=== PATIENT | male | born 1960 | race Caucasian/White ===

== ENCOUNTER 2020-01-16 14:01 | Outpatient (CLI) | payer MEDICARE, SELFPAY ==
[2020-01-16 17:04] LABS: Magnesium 1.9 mg/dL (1.6-2.3)
[2020-01-16 17:21] LABS: Vitamin D 25 Hydroxy 20.2 ng/mL
[2020-01-21 15:06] LABS: Testosterone Total 551 ng/dL (250-1100)
== END 2020-01-16 14:02 | disposition home or self-care (01) ==
PROVIDERS: Visit Provider Physical Medicine & Rehabilitation
DX: R53.83 Other fatigue (principal)
CPT/HCPCS: 36415; 82306; 83735; 84403; 84443

== ENCOUNTER 2020-07-28 09:30 | Outpatient (RCR) | payer MEDICARE, SELFPAY ==
[2020-06-23 15:49] VITALS: BP 124/80; PULSE 67; RESP 16; TEMP 36.1; O2SAT 96
[2020-06-23 15:54] VITALS: PULSE 67
--- NOTE | 2020-07-06 10:52 | PCCPR ---
Order for nonmonitored exercise ordered Order received from Dr Winchester.
--- NOTE | 2020-08-17 09:10 | PCCPR ---
Addendum entered by Dayanara Jett RN 08/24/20 09:44: Rodrick lLM on our vm that e has an apt with his MD on 09/02 and hopes to return shortly after that. Original Note: Absent week of August 17-. Rodrick called in stating he is having issues with his anger. Nothing physical but he is having verbal outbursts. He has a call out to his neurologist to try to get an appt. He states before he returns to pulmonary rehab he wants to get it under control. He will call us later this week or next Monday after he hears back from his neurologist.
--- NOTE | 2020-09-08 10:59 | PCCPR ---
Called Jama today to follow up regarding his return to pulmonary rehab. No answer, left message.
--- NOTE | 2020-09-18 14:10 | PCCPR ---
Rodrick has not returned and has not returned our call. Called again today. No answer, left message asking him to return our call and if we do not hear from him by the end of next week, he will be discharged from program.
--- NOTE | 2020-09-25 09:20 | PCCPR ---
Jama has not returned our call and has not attended since 07/28/20. Discharged from program.
== END 2020-09-25 09:47 | disposition home or self-care (01) ==
LOC: ANHCPREHAB 09:30
PROVIDERS: PCP Internal Medicine
DX: J43.9 Emphysema, unspecified (principal)
CPT/HCPCS: 97150; G0424

== ENCOUNTER 2024-04-19 01:56 | Day surgery (SDC) | payer MEDICARE, SELFPAY ==
--- NOTE | 2024-04-15 13:26 | PC.NURSE ---
Report to the Outpatient Waiting Room, entrance under the green pavilion located off [facility], at time _12:15 pm on date _04/19/24 . Planned Procedure Time: _2:15 pm .? Time changes happen often and if your time is changed the preop area will call you the afternoon before. - You and your visitor will be asked to self-screen and do not enter if you have any COVID symptoms. Please call surgeon if you need to reschedule. - A mask is optional within the hospital at this time. NOTHING TO EAT OR DRINK 8 HOURS PRIOR TO SURGERY PER DR SAEED (6:15 AM) Take only the following medications with a SIP of water on the morning of surgery: ___TRELEGY INHALER,_AMLODIPINE,,METOPROLOL,VENLAFAXINE DO NOT STOP ANY OF YOUR OTHER PRESCRIPTION MEDICATIONS PRIOR TO SURGERY EXCEPT THE FOLLOWING Medications to discontinue per physician ____ASPIRIN PER DR SAEED Please no make-up, nail bulgarian, hairspray, perfume, deodorant, or body powder the day of surgery.? No jewelry (including any body piercings) or valuables the day of surgery, leave them at home.? Please take a shower or bath the night before, or the morning of, surgery with an antibacterial soap.? Wear comfortable, loose fitting clothing.? Children are encouraged to wear pajamas. - Jewelry must be removed prior to entering the operating room.? Rings and piercings that are not removed may be cut off. - The hospital will not accept responsibility for valuables.? - Please leave all valuables, including medications, at home the day of surgery. If you are going home after surgery, a licensed diesel pile driver operator must drive you home.? - NO public transportation without another adult if you receive anesthesia. - We recommend that an adult stay with you for 24 hours following discharge. - We also recommend that you do not drive, make important decision, drink alcoholic beverages, or take any drugs that were not prescribed by your health care provider for at least 24 hours after your discharge time. For Pediatric surgeries, we recommend two adults accompany the child home. Follow any additional instructions given to you from your surgeon. Telephone instructions given to __PATIENT and asked if any additional questions and then verbalized understanding. Patient advised to call surgeon office or pre surgery nurse liaison [phone] if any additional questions.
[2024-04-15 13:56] VITALS: BMI 22.1
--- NOTE | 2024-04-19 10:00 | PM.HPGS ---
History of Present Illness History of Present Illness Chief complaint: right Dupuytren's contracture Narrative: Patient seen and examined in pre-operative holding area. No interval change in medical history or symptoms. Patient recalls previous discussion of benefits and alternatives to procedure. Continues to desire to proceed with right small finger fasciectomy . Reviewed procedure, post-op expectations and risks including but not limited to bleeding, infection, injury to tendon/nerve/vessel, decreased hand function, stiffness, RSD, no change or worsening of symptoms, recurrence, incomplete release. I discussed the possible use of assistants and their participation in the case. Patient stated understanding and signed the consent form wishing to proceed. Review of Systems Review of Systems: All systems reviewed & are unremarkable except as noted in HPI and below PMFSH Past Medical History Medical History (Updated 04/19/24 @ 10:53 by Sandip Tirado DO) COPD (chronic obstructive pulmonary disease) Atherosclerosis Pneumonia Heart disease Erythrocytosis Bronchitis Blood clotting disorder Osteoarthritis Subclavian steal syndrome Myocardial infarction Tumor of soft tissue of neck removed 09/11 Onychocryptosis Shoulder pain Hypertension CVA (cerebral vascular accident) Polycythemia Pulmonary emphysema Depression Hypercholesterolemia CAD (coronary artery disease) Surgical History Surgical History H/O hand surgery right H/O foot surgery Right H/O right coronary artery stent placement 2000 Family History Family History Father Mesothelioma Family history of Parkinson's disease Diabetes mellitus Sibling Family history of malignant neoplasm of breast in first degree relative Mother Patient's mother is Congestive heart failure Other Hypertension Social History Social History (Updated 01/02/24 @ 09:20 by Sanjuana Coon CMA) Smoking packs per day: 2.5 Smoking cigarettes per day: 50.0 Years smoked: 30 Smoking pack-years: 75.00 Smoking status: Former smoker Tobacco type: cigarettes Smokeless tobacco user: other Smoking end date: 05/01/08 Additional smoking assessment comments: states he still smokes marajuana for anxiety and some pain managment Alcohol intake: current Drinks per week: 7 Alcohol use details: Pt drinks socially. Substance use: current Substance use type: marijuana Last use: 04/15/24 Do You Feel Safe in your Home?: Yes Lack of Transportation: YES Lack of Food: Sometimes True Current Housing: I Have Housing Concerned About Future Housing: No Difficulty Paying Gas/Electric Bills: YES Difficulty Paying for Meds: No Currently Unemployed: No Education: High School Diploma/GED Difficulty w/ Childcare or Family Care: No Living arrangements: with family Gender identity (if verbalized by the patient): Male Spiritual care concerns: No Meds Home Medications and Allergies Home Medications ?Medication ?Instructions ?Recorded ?Confirmed ?Type aspirin 81 mg tablet,delayed 81 mg PO DAILY 04/15/19 04/19/24 History release (Adult Aspirin Regimen) baclofen 10 mg tablet 10 mg PO DAILY 06/12/20 04/19/24 History fluticasone fur. 100 mcg-umeclid 1 inh inhalation DAILY 06/12/20 04/19/24 History 62.5 mcg-vilant 25 mcg inhalat.powder (Trelegy Ellipta) metoprolol tartrate 25 mg tablet 25 mg PO DAILY 07/29/20 04/19/24 History amlodipine 10 mg tablet See Rx Instructions .Route 11/17/23 04/19/24 Rx .COMPLEX #90 tabs albuterol sulfate 90 mcg/actuation 1 - 2 inh inhalation Q4H PRN 12/15/23 04/19/24 Rx aerosol inhaler (Ventolin HFA) shortness of breath or wheezing #8.5 grams atorvastatin 80 mg tablet 80 mg PO DAILY #90 tabs 12/15/23 04/15/24 Rx venlafaxine 75 mg capsule,extended 75 mg PO DAILY #90 caps 01/26/24 04/19/24 Rx release 24 hr (Effexor XR) Allergies Allergy/AdvReac Type Severity Reaction Status Date / Time rabbit dander Allergy Unknown Unknown Verified 04/15/24 13:36 Exam Narrative: unchanged Assessment and Plan Assessment and plan (1) Dupuytren contracture: Code(s): 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
--- NOTE | 2024-04-19 10:00 | W.PM.PROC2 ---
Procedure Note - Detailed Date of Procedure 04/19/24 Pre-op Diagnosis right small finger Dupuytren's contracture Post-op Diagnosis Same Procedure Performed right small finger fasciectomy Surgeon Anoop Schwartz MD Pipeline [employer] didi wilson pa-c Anesthesia MAC Description of Procedure INFORMED CONSENT: The patient was seen and examined and marked in the pre-op area.? The patient signed the consent form. PROCEDURE IN DETAIL:The patient taken back to OR on the stretcher in supine position. Time out performed with anesthesia, surgeon and staff agreeing on patient's name site and surgery to be performed SCDs were placed on the lower extremities and inflated. A tourniquet was placed on {right} upper extremity and antibiotics given IV After anesthesia administered sedation I injected {4}cc 1%lido and 0.5% marcaine plain at the operative site The?{right upper extremity}?was prepped and draped in sterile fashion the??{right upper extremity} was? exsanguinated with Esmarch bandage and tourniquet inflated to 250mmHg I proceeded with making a longitudinal incision over right small finger p2 cord extending to dipjoint on radial side through sking and dermis with a 15 blade scalpel. Littler scissors were used to spread down to the cord proximally. I circumferentailly dissected around this retrovascular cord and excised it with 15 blade scalpel improving extension of dipjoint. The neurovascular bundle was identified and protected during the procedure. Not achieving complete repease and extension of dipjoint I proceeded with making a longitudinal incision over the ulnar small finger cord through skin and dermis with a 15 blade scalpel. Littler scissors were used to spread around the cord which was transected with 15 blade proximally and then I proceeded with anterograde dissection until I achieved full release of the dipjoint. The neurovascular bundle was protected throughout the procedure. I irrigated with normal saline and closed incisions with 4-0 chromic A dressing of xeroform , 4x4, kelvin, and an ulnar gutter splint was applied for patient safety, security, and comfort and secured with an marcelina bandage after the tourniquet was let down noting the hand was warm and well perfused. The patient was then awaken from anesthesia and transferred to the recovery room in stable condition.? Complications - none EBL- 0cc Disposition - home in stable conditions didi wilson pa-c was essential for positioning, retraction, closure and dressing placement [facility] Billing Surgery - Charge Forward: Surgery Billing ([id number] for didi)
--- NOTE | 2024-04-19 10:53 | P.PNAN_ITS ---
Anes - Initial Pre Proc Eval Procedure: Operation Date: 04/19/24 14:15 Proposed Procedures p Right Small Finger Fasciectomy - Anoop Schwartz MD Date/Time: 04/19/24 10:53 Surgeon: Anoop Schwartz MD Pre Op Diagnosis: right Dupuytren's contracture Patient Data Age: 63 Gender: M Height: 1.75 m Weight: 68.1 kg Allergies Allergy/AdvReac Type Severity Reaction Status Date / Time rabbit dander Allergy Unknown Unknown Verified 04/15/24 13:36 Home Medications ?Medication ?Instructions ?Recorded ?Confirmed ?Type aspirin 81 mg tablet,delayed 81 mg PO DAILY 04/15/19 04/19/24 History release (Adult Aspirin Regimen) baclofen 10 mg tablet 10 mg PO DAILY 06/12/20 04/19/24 History fluticasone fur. 100 mcg-umeclid 1 inh inhalation DAILY 06/12/20 04/19/24 History 62.5 mcg-vilant 25 mcg inhalat.powder (Trelegy Ellipta) metoprolol tartrate 25 mg tablet 25 mg PO DAILY 07/29/20 04/19/24 History amlodipine 10 mg tablet See Rx Instructions .Route 11/17/23 04/19/24 Rx .COMPLEX #90 tabs albuterol sulfate 90 mcg/actuation 1 - 2 inh inhalation Q4H PRN 12/15/23 04/19/24 Rx aerosol inhaler (Ventolin HFA) shortness of breath or wheezing #8.5 grams atorvastatin 80 mg tablet 80 mg PO DAILY #90 tabs 12/15/23 04/15/24 Rx venlafaxine 75 mg capsule,extended 75 mg PO DAILY #90 caps 01/26/24 04/19/24 Rx release 24 hr (Effexor XR) Patient hx anesthesia problems: none Family hx anesthesia problems: none Results Review: All pre-operative results and documents have been reviewed as part of the pre- operative evaluation. [facility] Past Medical History Medical History (Updated 04/19/24 @ 10:53 by Sandip Tirado DO) COPD (chronic obstructive pulmonary disease) Atherosclerosis Pneumonia Heart disease Erythrocytosis Bronchitis Blood clotting disorder Osteoarthritis Subclavian steal syndrome Myocardial infarction Tumor of soft tissue of neck removed 09/11 Onychocryptosis Shoulder pain Hypertension CVA (cerebral vascular accident) Polycythemia Pulmonary emphysema Depression Hypercholesterolemia CAD (coronary artery disease) Surgical History Surgical History H/O hand surgery right H/O foot surgery Right H/O right coronary artery stent placement 2000 Family History Family History Father Mesothelioma Family history of Parkinson's disease Diabetes mellitus Sibling Family history of malignant neoplasm of breast in first degree relative Mother Patient's mother is Congestive heart failure Other Hypertension Social History Social History (Updated 01/02/24 @ 09:20 by Sanjuana Coon CMA) Smoking packs per day: 2.5 Smoking cigarettes per day: 50.0 Years smoked: 30 Smoking pack-years: 75.00 Smoking status: Former smoker Tobacco type: cigarettes Smokeless tobacco user: other Smoking end date: 05/01/08 Additional smoking assessment comments: states he still smokes marajuana for anxiety and some pain managment Alcohol intake: current Drinks per week: 7 Alcohol use details: Pt drinks socially. Substance use: current Substance use type: marijuana Last use: 04/15/24 Do You Feel Safe in your Home?: Yes Lack of Transportation: YES Lack of Food: Sometimes True Current Housing: I Have Housing Concerned About Future Housing: No Difficulty Paying Gas/Electric Bills: YES Difficulty Paying for Meds: No Currently Unemployed: No Education: High School Diploma/GED Difficulty w/ Childcare or Family Care: No Living arrangements: with family Gender identity (if verbalized by the patient): Male Spiritual care concerns: No Anes - Eval Final PreProcedure Day of Procedure 04/19/24 10:53 Patient weight: normal Heart: regular rate and rhythm Lungs: clear to auscultation and normal air movement Airway: Mallampati scale class II Neurological: alert and oriented Last oral intake: >/= 8 hours ASA classification: III Emergent: no Anesthetic plan: proceed Anesthesia type and monitoring: general GIVS and standard monitoring Results Review: All pre-operative results and documents have been reviewed as part of the pre- operative evaluation. Informed Consent: The patient's anesthetic plan and its attendant risks and benefits were discussed with the patient/family/POA. Questions were solicited and answers provided to the satisfaction of the patient/family/POA.
[2024-04-19 12:38] VITALS: BP 141/84; PULSE 69; RESP 18; TEMP 36.3; O2SAT 99
[2024-04-19] MEDS: LACTATED RINGERS 1,000 ML 30 ML IV CONT (13:05)
[2024-04-19] MEDS: BUPivacaine HCL 0.5% 10 ML AMP INFILTRATE (13:37)
[2024-04-19] MEDS: ceFAZolin 2 GM/D5W 50 ML 2 GM/50 ML BAG IVPB (13:37)
[2024-04-19] MEDS: LIDOCAINE 1% LOCAL INJ 10 ML VIAL INFILTRATE (13:48)
[2024-04-19] MEDS: BACITRACIN OINTMENT 15 GM TUBE 1 APPLIC TOPICAL (13:58)
[2024-04-19 14:05] VITALS: BP 138/96; PULSE 67; RESP 16; O2SAT 100
[2024-04-19 14:35] VITALS: BP 114/74; PULSE 62; RESP 16; O2SAT 98
== END 2024-04-19 14:55 | disposition home or self-care (01) ==
PROVIDERS: PCP Internal Medicine; Visit Provider Plastic Surgery
PROC: (CPT 26045; principal; 2024-04-19 14:15)
DX: M72.0 Palmar fascial fibromatosis [Dupuytren] (principal); F12.90 Cannabis use, unspecified, uncomplicated; Z87.891 Personal history of nicotine dependence; Z79.899 Other long term (current) drug therapy
CPT/HCPCS: 26123; 88304; J0690; J2003; J2704; J7120